=== PATIENT | female | born 1965 | race Two or more races ===

== ENCOUNTER 2016-09-08 09:31 | Day surgery (SDC) | payer OTHER ==
[2016-09-08] MEDS ORDERED: LACTATED RINGERS 1,000 ML IV ONE (11:05)
[2016-09-08] MEDS ORDERED: MIDAZOLAM 2 MG/2 ML VIAL IVP ONE (11:40)
[2016-09-08] MEDS ORDERED: fentaNYL 100 MCG/2 ML VIAL IVP ONE (11:40)
[2016-09-08] MEDS ORDERED: SIMETHICONE 40 MG/0.6 ML 30 ML BOTTLE PO ONE (11:47)
== END 2016-09-08 09:32 | disposition home or self-care (01) ==
PROC: 0DJD8ZZ Inspection of Lower Intestinal Tract, Via Natural or Artificial Opening Endoscopic (ICD-10-PCS; principal; 2016-09-08 11:00)
DX: Z12.11 Encounter for screening for malignant neoplasm of colon (principal); Z82.49 Family history of ischemic heart disease and other diseases of the circulatory system; K64.8 Other hemorrhoids
CPT/HCPCS: 45378; A9270; J7120